=== PATIENT | male | born 1960 | race Two or more races ===

== ENCOUNTER 2022-07-20 14:52 | Inpatient (IN) | payer OTHER ==
[2022-07-20] MEDS ORDERED: chlordiazePOXIDE HCL 25 MG CAPSULE PO ONE ×2 (16:59→21:40)
[2022-07-20] MEDS ORDERED: SODIUM CHLORIDE 0.9% 500 ML INFUS.BAG IV ONE (18:40)
[2022-07-20] MEDS ORDERED: chlordiazePOXIDE HCL 25 MG CAPSULE ONE ×2 (18:41→22:09)
[2022-07-20 19:27] LABS: BASO % 1.4 % (0-2.0); HEMATOCRIT 39.3 % (35.4-49); LYMPH % 22.7 % (8-40); MCHC 33.1 g/dl (32.0-35.9); MEAN CELL VOLUME 90.8 fl (80-96); MEAN PLT VOLUME 8.3 fl (7.5-11.1); MONO % 11.1 % (3.8-10.2); NEUT % 62.8 % (42.8-82.8); PLATELET COUNT 258 10^3/uL (134-434); RBC 4.33 M/mm3 (4.00-5.60); RDW 15.8 % (11.9-15.9); WHITE BLOOD COUNT 6.6 K/mm3 (4.0-10.0)
[2022-07-20 19:35] LABS: INR 1.03 (0.83-1.09); PROTHROMBIN TIME (PATIENT) 11.8 SEC (9.7-13.0)
[2022-07-20 19:37] LABS: ACTIVATED PTT 29.7 SECONDS (25.2-36.5)
[2022-07-20 19:41] LABS: CHLORIDE 101 mmol/L (98-107); SODIUM 137 mmol/L (136-145)
[2022-07-20 19:43] LABS: BLOOD UREA NITROGEN 8.1 mg/dL (7-18); CALCIUM 8.9 mg/dL (8.5-10.1); CO2 26 mmol/L (21-32); GLUCOSE,RANDOM 89 mg/dL (74-106)
[2022-07-20 19:46] LABS: CREATININE 0.7 mg/dL (0.55-1.3); SGOT/AST 101 U/L (15-37); SGPT/ALT 92 U/L (13-61)
[2022-07-20 19:48] LABS: BILIRUBIN,TOTAL 1.1 mg/dL (0.2-1); TOT PROT 8.5 g/dl (6.4-8.2)
[2022-07-20 19:49] LABS: ALK PHOS 67 U/L (45-117); ANION GAP 10 MMOL/L (8-16)
[2022-07-20] MEDS ORDERED: ONDANSETRON 4 MG/2 ML VIAL IVPUSH ONE (21:39)
[2022-07-20] MEDS ORDERED: ONDANSETRON 4 MG/2 ML VIAL ONE (22:09)
[2022-07-20 22:19] VITALS: RESP 18
[2022-07-20] MEDS ORDERED: MELATONIN 5 MG TABLETS PO ONE (23:01)
[2022-07-20] MEDS ORDERED: MELATONIN 5 MG TABLETS ONE (23:54)
[2022-07-21] MEDS ORDERED: LORazepam 1 MG TABLET PO PRN (00:35)
[2022-07-21] MEDS ORDERED: MELATONIN 5 MG TABLETS PO PRN (00:40)
[2022-07-21] MEDS ORDERED: ONDANSETRON 4 MG/2 ML VIAL IVPUSH PRN (00:40)
[2022-07-21] MEDS: LACTATED RINGERS SOLUTION 1,000 ML/1,000 ML INFUS.BAG IV SCH (00:53)
[2022-07-21] MEDS ORDERED: POTASSIUM CHLORIDE TABS 20 MEQ TABLET.ER (FP) PO ONE (01:16)
[2022-07-21] MEDS: LORazepam 2 MG TABLET PO SCH ×2 (01:49→12:22)
[2022-07-21] MEDS: THIAMINE HCL 200 MG/2 ML VIAL IVPB SCH ×3 (01:49→16:47)
[2022-07-21 05:10] VITALS: BMI 28.8
[2022-07-21] MEDS ORDERED: LORazepam 1 MG TABLET PO SCH (05:26)
[2022-07-21] MEDS: LORazepam 1 MG TABLET PO SCH ×4 (05:34→22:30)
[2022-07-21] MEDS ORDERED: THIAMINE HCL 200 MG/2 ML VIAL IVPB SCH (10:00)
[2022-07-21] MEDS ORDERED: FOLIC ACID 1 MG TABLET (FP) PO SCH (10:00)
[2022-07-21] MEDS: ENOXAPARIN NA (PORCINE) 40 MG/0.4 ML DISP.SYRIN SQ SCH (10:50)
[2022-07-21] MEDS: FOLIC ACID 1 MG TABLET (FP) PO SCH (10:57)
[2022-07-21 11:36] LABS: EOS % 4.7 % (0-4.5); HEMATOCRIT 38.7 % (35.4-49); LYMPH % 16.9 % (8-40); MCH 30.1 pg (25.7-33.7); MCHC 33.5 g/dl (32.0-35.9); MEAN CELL VOLUME 89.8 fl (80-96); MEAN PLT VOLUME 7.9 fl (7.5-11.1); MONO % 13.2 % (3.8-10.2); NEUT % 64.2 % (42.8-82.8); PLATELET COUNT 227 10^3/uL (134-434); RBC 4.31 M/mm3 (4.00-5.60); RDW 15.5 % (11.9-15.9); WHITE BLOOD COUNT 5.3 K/mm3 (4.0-10.0)
[2022-07-21 12:26] LABS: BLOOD UREA NITROGEN 8.8 mg/dL (7-18)
[2022-07-21 12:27] LABS: CALCIUM 8.9 mg/dL (8.5-10.1)
[2022-07-21 12:28] LABS: ALBUMIN 3.5 g/dl (3.4-5.0); MAGNESIUM 2.1 mg/dL (1.8-2.4)
[2022-07-21 12:30] LABS: PHOSPHOROUS 3.2 mg/dL (2.5-4.9)
[2022-07-21 12:31] LABS: CREATININE 0.8 mg/dL (0.55-1.3)
[2022-07-21 12:32] LABS: BILIRUBIN,TOTAL 1.1 mg/dL (0.2-1); TOT PROT 7.5 g/dl (6.4-8.2)
[2022-07-21] MEDS ORDERED: LIDOCAINE PATCH REMOVAL MC SCH (22:00)
[2022-07-21] MEDS: LIDOCAINE 5% TOPICAL PATCH TP SCH (22:08)
[2022-07-22] MEDS: THIAMINE HCL 200 MG/2 ML VIAL IVPB SCH ×3 (00:43→17:10)
[2022-07-22] MEDS: LACTATED RINGERS SOLUTION 1,000 ML/1,000 ML INFUS.BAG IV SCH (02:29)
[2022-07-22] MEDS: LORazepam 1 MG TABLET PO SCH ×3 (04:44→16:30)
[2022-07-22 07:38] VITALS: TEMP 98.3
[2022-07-22] MEDS: ENOXAPARIN NA (PORCINE) 40 MG/0.4 ML DISP.SYRIN SQ SCH (10:20)
[2022-07-22] MEDS: LIDOCAINE 5% TOPICAL PATCH TP SCH (10:20)
[2022-07-22] MEDS: FOLIC ACID 1 MG TABLET (FP) PO SCH (10:22)
[2022-07-22] MEDS ORDERED: TRIAMCINOLONE ACET 0.1% CREAM 15 GM TUBE TP SCH (11:30)
[2022-07-22] MEDS ORDERED: PATIENT'S OWN MEDICATION (NON-FORMULARY) (Clobetasol Propionate/Emoll [Clobetasol Emollien TP SCH (11:30)
[2022-07-22] MEDS ORDERED: AMMONIUM LACTATE 12% LOTION 225 GM BOTTLE TP SCH (12:00)
[2022-07-22 13:27] VITALS: BP 116/71; PULSE 84
[2022-07-22] MEDS ORDERED: CALCIPOTRIENE TP SCH (22:00)
[2022-07-23] MEDS ORDERED: LORazepam 0.5 MG TABLET PO PRN
[2022-07-23] MEDS ORDERED: LORazepam 0.5 MG TABLET PO SCH (05:00)
[2022-07-23] MEDS ORDERED: THIAMINE HCL 200 MG/2 ML VIAL IVPB SCH (10:00)
[2022-07-24] MEDS ORDERED: LORazepam 0.5 MG TABLET PO ONE (06:00)
== END 2022-07-22 17:10 | disposition left against medical advice (07) | DRG 280 ==
LOC: JER 14:52 → JERBED 18:43 → J5S 07-21 03:09 → UNDODISIN 07-21 22:30
PROVIDERS: ADMIT Internal Medicine; ATTEND Internal Medicine
PROC: HZ2ZZZZ Detoxification Services for Substance Abuse Treatment (ICD-10-PCS; principal; 2022-07-20)
DX: K70.10 Alcoholic hepatitis without ascites (principal); F10.239 Alcohol dependence with withdrawal, unspecified; R07.9 Chest pain, unspecified; R74.01 Elevation of levels of liver transaminase levels; K76.0 Fatty (change of) liver, not elsewhere classified; E51.2 Wernicke's encephalopathy; R56.9 Unspecified convulsions; E87.5 Hyperkalemia; L40.9 Psoriasis, unspecified; H55.00 Unspecified nystagmus
CPT/HCPCS: 0241U-QW; 36415; 70450-TC; 71045-TC-FY; 71260-TC; 72125-TC; 72128-TC; 72131-TC; 74177-TC; 80053; 83735; 84100; 84132; 84484; 85025; 85610; 85730; 93005; 93010; 97116-GP; 97161-GP; 99285-25; Q9967